=== PATIENT | male | born 1940 | race Caucasian/White ===

== ENCOUNTER 2017-06-05 10:09 | Emergency (ER) | payer OTHER ==
[~2017-06-05] VITALS: Ht 185.4 cm; Wt 108.9 kg
[~2017-06-05 10:09] MED LIST: AVAPRO300 MG; CIPRO500 MG PO; GLIMEPIRIDE4 MG; LEVAQUIN750 MG; VASOTEC10 MG
[2017-06-05] MEDS ORDERED: TAMS0.4C (10:41)
[2017-06-05] MEDS ORDERED: URETRON D-S TAB1 TAB (10:42)
[2017-06-05] MEDS ORDERED: TRICOR145 MG (10:43)
== END 2017-06-05 16:25 | disposition home or self-care (01) ==
LOC: ER 10:09
DX: N30.90 Cystitis, unspecified without hematuria (principal); N20.0 Calculus of kidney; R06.02 Shortness of breath

== ENCOUNTER 2018-05-07 18:08 | Emergency (ER) | payer OTHER ==
[~2018-05-07] VITALS: Ht 185.4 cm; Wt 108.9 kg
[~2018-05-07 18:08] MED LIST changes: +TAMS0.4C; +TRICOR145 MG; +URETRON D-S TAB1 TAB
== END 2018-05-07 22:14 | disposition home or self-care (01) ==
LOC: ER 18:08
DX: N39.0 Urinary tract infection, site not specified (principal); B96.29 Other Escherichia coli [E. coli] as the cause of diseases classified elsewhere; R31.0 Gross hematuria

== ENCOUNTER 2018-05-22 16:11 | Emergency (ER) | payer OTHER ==
[~2018-05-22] VITALS: Ht 185.4 cm; Wt 107.5 kg
[2018-05-22] MEDS ORDERED: FINACEA50 G1 (16:22)
[2018-05-22] MEDS ORDERED: CIPRO500 MG (16:22)
[2018-05-22] MEDS ORDERED: PROSCAR5 MG (16:23)
== END 2018-05-22 20:47 | disposition home or self-care (01) ==
LOC: ER 16:11
DX: N39.0 Urinary tract infection, site not specified (principal)

== ENCOUNTER 2018-06-12 08:40 | Outpatient (CLI) | payer OTHER ==
[~2018-06-12 08:40] MED LIST changes: +CIPRO500 MG; +FINACEA50 G1; +PROSCAR5 MG
== END 2018-06-12 09:30 | disposition home or self-care (01) ==
LOC: EDBD 08:40 → RAD 08:40 → TOM 08:45 → RAD 09:30
DX: M54.5 Low back pain (principal); M54.16 Radiculopathy, lumbar region; M51.36 Other intervertebral disc degeneration, lumbar region; R31.0 Gross hematuria

== ENCOUNTER → 2018-06-12 10:15 | Outpatient (CLI) | payer OTHER | END | disposition home or self-care (01) | LOC: LAB 10:15 | DX: N30.00 Acute cystitis without hematuria (principal); B96.29 Other Escherichia coli [E. coli] as the cause of diseases classified elsewhere ==